=== PATIENT | male | born 1955 | race African-American/Black ===

== ENCOUNTER 2021-06-23 23:57 | Inpatient (IN) | payer MEDICARE, MEDICAID ==
[~2021-06-23] VITALS: Ht 182.9 cm; Wt 92.4 kg
[~2021-06-23 23:57] MED LIST: AMLODIPINE PO; ASPI-696 PO; ATOR-2 PO; CARV25TA12 PO; CEPH-376 PO; FURO80TA3 PO; LEVO750T6 PO; LISI-167 PO; PREG75CA PO; SPIR25TA5 PO; TRIGENTA PO
--- NOTE | 2021-06-24 01:58 | NUR ---
Note undone in EDM - 06/24/21 at 0443 by LINWOOD Pt arrives with c/o R lower leg and foot pain. Swelling and redness noted. Pt has amputation of R great toe due to prior infection and DM2. Able to change into gown independenly. [facility]
[2021-06-24 03:13] LABS: BASOPHILS % (AUTO) 1 % (0-1); EOSINOPHILS % (AUTO) 3 % (1-7); LYMPHOCYTES % (AUTO) 13 % (22-44); MEAN CORPUSCULAR HEMOGLOBIN 26.4 pg (27.5-34.5); MEAN CORPUSCULAR HGB CONC 32.5 g/dL (33.2-36.2); MEAN PLATELET VOLUME 9.1 fL (7.4-10.4); MONOCYTES % (AUTO) 8 % (2-9); NEUTROPHILS % (AUTO) 76 % (42-75); PLATELET COUNT 253 x10^3/uL (130-400); RED BLOOD COUNT 4.78 x10^6/uL (4.38-5.82)
[2021-06-24 03:16] LABS: ALANINE AMINOTRANSFERASE 24 U/L (12-78); ALBUMIN 3.3 g/dL (3.4-5.0); ANION GAP 7 mmol/L (5-15); CALCIUM 10.1 mg/dL (8.5-10.1); CHLORIDE 99 mmol/L (98-107); CREATININE 2.11 mg/dL (0.7-1.3)
[2021-06-24 03:18] LABS: ALKALINE PHOSPHATASE 150 U/L (45-117); BILIRUBIN,TOTAL 0.4 mg/dL (0.2-1.0)
[2021-06-24 03:19] LABS: TOTAL PROTEIN 10.3 g/dL (6.4-8.2)
[2021-06-24] MEDS ORDERED: ONDANSETRON 2MG/ML, 2ML IVPush PRN ×2 (04:00→04:30)
[2021-06-24] MEDS ORDERED: PIPERACILLIN/TAZO 3.375 GM in DEXTROSE 5% 50 ML IVPB ONE (04:00)
[2021-06-24] MEDS ORDERED: MORPHINE SULFATE 4 MG/ML, 1ML IVPush PRN ×2 (04:00→20:00)
[2021-06-24] MEDS ORDERED: VANCOMYCIN PER PHARMACY MC ONE (04:00)
[2021-06-24] MEDS ORDERED: HYDROmorphone 2 MG/ML, 1ML IVPush PRN (04:30)
[2021-06-24] MEDS ORDERED: VANCOMYCIN PER PHARMACY MC PRN (04:30)
[2021-06-24] MEDS ORDERED: PHARMACY MAY ADJ FOR RENAL FX MC PRN ×2 (04:30→19:30)
[2021-06-24] MEDS ORDERED: VANCOMYCIN 1,600 MG in SODIUM CHLORIDE 0.9% 250 ML IV ONE ×2 (04:30→23:30)
[2021-06-24] MEDS ORDERED: LABETALOL 5MG/ML, 20ML IVPush PRN (04:30)
--- NOTE | 2021-06-24 04:40 | NUR ---
Terrie perez in [facility] - 06/24/21 at 0443 by LINWOOD Report to [facility]
--- NOTE | 2021-06-24 04:40 | NUR ---
Report to [facility]
[2021-06-24] MEDS ORDERED: MORPHINE SULFATE 4 MG/ML, 1ML ONE (04:46)
[2021-06-24] MEDS ORDERED: ONDANSETRON 2MG/ML, 2ML ONE (04:46)
[2021-06-24] MEDS ORDERED: PHARMACOKINETIC MONITORING MC PRN (05:30)
[2021-06-24] MEDS ORDERED: VANCOMYCIN 1,800 MG in SODIUM CHLORIDE 0.9% 250 ML IV ONE (06:00)
[2021-06-24] MEDS ORDERED: CEFEPIME 2 GM in DEXTROSE 5% 100 ML IV SCH (06:00)
[2021-06-24] MEDS: INSULIN LISPRO 100 UNITS/ML, PEN SQ-INSULIN SCH ×4 (07:00→21:04)
[2021-06-24 08:20] VITALS: BP 113/71
[2021-06-24] MEDS: ACETAMINOPHEN 325 MG TABLET PO PRN ×3 (08:42→21:04)
[2021-06-24] MEDS: ENOXAPARIN 30 MG/0.3 ML SQ SCH (08:43)
[2021-06-24 14:43] VITALS: BP 114/72
[2021-06-24 20:37] VITALS: BP 126/81
[2021-06-24] MEDS: MEROPENEM 500 MG in SODIUM CHLORIDE 0.9% 100 ML IV SCH (21:04)
[2021-06-25 02:37] VITALS: BP 126/86
[2021-06-25 06:04] LABS: BASOPHILS % (AUTO) 1 % (0-1); EOSINOPHILS % (AUTO) 4 % (1-7); LYMPHOCYTES % (AUTO) 17 % (22-44); MEAN CORPUSCULAR HEMOGLOBIN 26.6 pg (27.5-34.5); MEAN CORPUSCULAR HGB CONC 32.4 g/dL (33.2-36.2); MEAN PLATELET VOLUME 9.4 fL (7.4-10.4); MONOCYTES % (AUTO) 10 % (2-9); NEUTROPHILS % (AUTO) 69 % (42-75); PLATELET COUNT 206 x10^3/uL (130-400); RED BLOOD COUNT 4.32 x10^6/uL (4.38-5.82); RED CELL DISTRIBUTION WIDTH 15.9 % (9.4-14.8)
[2021-06-25 06:10] LABS: ANION GAP 7 mmol/L (5-15); CALCIUM 9.3 mg/dL (8.5-10.1); CHLORIDE 102 mmol/L (98-107); CREATININE 1.86 mg/dL (0.7-1.3)
[2021-06-25 07:49] VITALS: BP 144/91
[2021-06-25] MEDS ORDERED: ENOXAPARIN 40 MG/0.4 ML SQ SCH (08:00)
[2021-06-25] MEDS: INSULIN LISPRO 100 UNITS/ML, PEN SQ-INSULIN SCH ×4 (08:08→21:45)
[2021-06-25] MEDS ORDERED: MAGNESIUM SULFATE PMX 2GM/50ML 50 ML IV ONE (08:30)
[2021-06-25] MEDS: ENOXAPARIN 30 MG/0.3 ML SQ SCH (09:44)
[2021-06-25] MEDS: MEROPENEM 500 MG in SODIUM CHLORIDE 0.9% 100 ML IV SCH ×2 (09:44→21:13)
[2021-06-25] MEDS: OXYcodone IR 5MG TABLET PO PRN (11:41)
[2021-06-25] MEDS: ACETAMINOPHEN 325 MG TABLET PO PRN (11:41)
[2021-06-25 13:07] VITALS: BP 113/69
[2021-06-25 19:50] VITALS: BP 143/92
[2021-06-25] MEDS: VANCOMYCIN 1,600 MG in SODIUM CHLORIDE 0.9% 250 ML IV SCH (23:18)
[2021-06-25] MEDS: MELATONIN 5 MG TABLET PO PRN (23:25)
[2021-06-26] MEDS: OXYcodone IR 5MG TABLET PO PRN ×2 (02:48→21:09)
[2021-06-26 03:25] VITALS: BP 146/91
[2021-06-26 05:54] LABS: BASOPHILS % (AUTO) 1 % (0-1); EOSINOPHILS % (AUTO) 4 % (1-7); LYMPHOCYTES % (AUTO) 20 % (22-44); MEAN CORPUSCULAR HEMOGLOBIN 26.6 pg (27.5-34.5); MEAN CORPUSCULAR HGB CONC 32.7 g/dL (33.2-36.2); MEAN PLATELET VOLUME 9.2 fL (7.4-10.4); MONOCYTES % (AUTO) 11 % (2-9); NEUTROPHILS % (AUTO) 65 % (42-75); PLATELET COUNT 202 x10^3/uL (130-400); RED BLOOD COUNT 4.12 x10^6/uL (4.38-5.82); RED CELL DISTRIBUTION WIDTH 15.8 % (9.4-14.8)
[2021-06-26 06:08] LABS: ANION GAP 8 mmol/L (5-15); CALCIUM 9.4 mg/dL (8.5-10.1); CHLORIDE 103 mmol/L (98-107); CREATININE 1.55 mg/dL (0.7-1.3)
[2021-06-26] MEDS: INSULIN LISPRO 100 UNITS/ML, PEN SQ-INSULIN SCH ×4 (07:19→21:10)
[2021-06-26 07:37] VITALS: BP 119/80
[2021-06-26] MEDS: MEROPENEM 500 MG in SODIUM CHLORIDE 0.9% 100 ML IV SCH ×2 (08:39→21:10)
[2021-06-26] MEDS: ENOXAPARIN 40 MG/0.4 ML SQ SCH (08:39)
[2021-06-26 14:15] VITALS: BP 127/80
[2021-06-26] MEDS ORDERED: OMNIPAQUE 350 MG/ML, 150 ML BOTTLE ONE (15:45)
[2021-06-26 19:42] VITALS: BP 147/93
[2021-06-26] MEDS: MELATONIN 5 MG TABLET PO PRN (21:09)
[2021-06-26] MEDS: ACETAMINOPHEN 325 MG TABLET PO PRN (21:09)
[2021-06-26] MEDS: VANCOMYCIN 1,600 MG in SODIUM CHLORIDE 0.9% 250 ML IV SCH (22:33)
[2021-06-27 01:12] VITALS: BP 127/85
[2021-06-27 05:53] LABS: ALBUMIN 2.6 g/dL (3.4-5.0); ANION GAP 6 mmol/L (5-15); CALCIUM 9.4 mg/dL (8.5-10.1); CHLORIDE 103 mmol/L (98-107)
[2021-06-27 05:57] LABS: ALANINE AMINOTRANSFERASE 16 U/L (12-78); ALKALINE PHOSPHATASE 116 U/L (45-117); BILIRUBIN,TOTAL 0.3 mg/dL (0.2-1.0); TOTAL PROTEIN 8.6 g/dL (6.4-8.2)
[2021-06-27 06:04] LABS: BASOPHILS % (AUTO) 1 % (0-1); EOSINOPHILS % (AUTO) 5 % (1-7); LYMPHOCYTES % (AUTO) 20 % (22-44); MEAN CORPUSCULAR HEMOGLOBIN 26.1 pg (27.5-34.5); MEAN CORPUSCULAR HGB CONC 32.1 g/dL (33.2-36.2); MEAN PLATELET VOLUME 8.9 fL (7.4-10.4); MONOCYTES % (AUTO) 10 % (2-9); NEUTROPHILS % (AUTO) 64 % (42-75); PLATELET COUNT 226 x10^3/uL (130-400); RED BLOOD COUNT 4.48 x10^6/uL (4.38-5.82); RED CELL DISTRIBUTION WIDTH 15.6 % (9.4-14.8)
[2021-06-27] MEDS: INSULIN LISPRO 100 UNITS/ML, PEN SQ-INSULIN SCH ×4 (06:07→20:34)
[2021-06-27] MEDS: ENOXAPARIN 40 MG/0.4 ML SQ SCH (08:00)
[2021-06-27 08:45] VITALS: BP 155/100
[2021-06-27] MEDS: MEROPENEM 500 MG in SODIUM CHLORIDE 0.9% 100 ML IV SCH (09:00)
[2021-06-27 14:05] VITALS: BP 145/96
[2021-06-27] MEDS ORDERED: MEROPENEM 1 GM in SODIUM CHLORIDE 0.9% 100 ML IVPB SCH (15:00)
[2021-06-27] MEDS ORDERED: CHLORHEXIDINE 15 ML UDC ONE (15:18)
[2021-06-27] MEDS ORDERED: MIDAZOLAM 1 MG/ML, 2ML ONE (15:22)
[2021-06-27] MEDS ORDERED: FENTANYL PF 100 MCG/2ML ONE ×2 (15:22→17:09)
[2021-06-27] MEDS ORDERED: CHLORHEXIDINE 15 ML UDC PO ONE (15:30)
[2021-06-27] MEDS ORDERED: HYDROmorphone 1 MG/ML, 1ML INJ IVPush PRN (16:00)
[2021-06-27] MEDS ORDERED: ONDANSETRON 2MG/ML, 2ML IVPush PRN (16:00)
[2021-06-27] MEDS ORDERED: PROMETHAZINE 25 MG/ML, 1ML IVPush PRN (16:00)
[2021-06-27] MEDS ORDERED: HYDROcodone/APAP 7.5-325MG/15ML UDC PO PRN (16:00)
[2021-06-27] MEDS ORDERED: MEPERIDINE/PF 25MG/0.5ML IVPush PRN (16:00)
[2021-06-27] MEDS ORDERED: OXYcodone 5 MG/5 ML ORAL.SOL UDC PO PRN (16:00)
[2021-06-27] MEDS ORDERED: DEXAMETHASONE 4 MG/ML, 1ML ONE (16:33)
[2021-06-27] MEDS ORDERED: ONDANSETRON 2MG/ML, 2ML ONE (16:33)
[2021-06-27] MEDS ORDERED: CEFAZOLIN 1,000 MG ONE (16:33)
[2021-06-27] MEDS ORDERED: PROPOFOL 10 MG/ML, 20ML ONE (16:33)
[2021-06-27] MEDS ORDERED: OXYcodone 5 MG/5 ML ORAL.SOL UDC ONE (17:10)
[2021-06-27] MEDS: FENTANYL PF 100 MCG/2ML IV PRN ×2 (17:12→17:27)
[2021-06-27 18:27] VITALS: BP 143/86
[2021-06-27] MEDS: ATORVASTATIN 80 MG TABLET PO SCH (20:31)
[2021-06-27] MEDS: PREGABALIN 75 MG CAPSULE PO SCH (20:31)
[2021-06-27] MEDS: OXYcodone IR 5MG TABLET PO PRN (20:31)
[2021-06-27] MEDS: MEROPENEM 1 GM in SODIUM CHLORIDE 0.9% 100 ML IVPB SCH (20:33)
[2021-06-27] MEDS: SPIRONOLACTONE 25 MG TABLET PO SCH (20:33)
[2021-06-27] MEDS: VANCOMYCIN 1,400 MG in SODIUM CHLORIDE 0.9% 250 ML IV SCH (22:19)
[2021-06-27 23:40] VITALS: BP 146/96
[2021-06-28] MEDS: OXYcodone IR 5MG TABLET PO PRN ×4 (00:35→20:56)
[2021-06-28 03:45] VITALS: BP 132/89
[2021-06-28] MEDS ORDERED: ALLO100T30 PO (04:44)
[2021-06-28 05:35] LABS: BASOPHILS % (AUTO) 1 % (0-1); EOSINOPHILS % (AUTO) 5 % (1-7); LYMPHOCYTES % (AUTO) 16 % (22-44); MEAN CORPUSCULAR HEMOGLOBIN 26.5 pg (27.5-34.5); MEAN CORPUSCULAR HGB CONC 32.5 g/dL (33.2-36.2); MONOCYTES % (AUTO) 13 % (2-9); NEUTROPHILS % (AUTO) 66 % (42-75); PLATELET COUNT 245 x10^3/uL (130-400); RED BLOOD COUNT 4.34 x10^6/uL (4.38-5.82); RED CELL DISTRIBUTION WIDTH 15.8 % (9.4-14.8)
[2021-06-28 05:44] LABS: ALANINE AMINOTRANSFERASE 16 U/L (12-78); ALBUMIN 2.2 g/dL (3.4-5.0); ANION GAP 3 mmol/L (5-15); CHLORIDE 104 mmol/L (98-107); CREATININE 2.03 mg/dL (0.7-1.3)
[2021-06-28 05:47] LABS: ALKALINE PHOSPHATASE 97 U/L (45-117); BILIRUBIN,TOTAL 0.3 mg/dL (0.2-1.0)
[2021-06-28] MEDS: CARVEDILOL 25 MG TABLET PO SCH (06:10)
[2021-06-28] MEDS: ASPIRIN 81 MG TABLET EC PO SCH (06:10)
[2021-06-28] MEDS: INSULIN LISPRO 100 UNITS/ML, PEN SQ-INSULIN SCH ×4 (06:14→20:56)
[2021-06-28 08:34] VITALS: BP 136/87
[2021-06-28] MEDS: LINAGLIPTIN 5 MG TAB PO SCH (09:00)
[2021-06-28] MEDS ORDERED: LISINOPRIL 10 MG TABLET PO SCH (09:00)
[2021-06-28] MEDS ORDERED: FUROSEMIDE 80 MG TABLET PO SCH (09:00)
[2021-06-28] MEDS: SPIRONOLACTONE 25 MG TABLET PO SCH (09:56)
[2021-06-28] MEDS: ENOXAPARIN 40 MG/0.4 ML SQ SCH (09:56)
[2021-06-28] MEDS: MEROPENEM 1 GM in SODIUM CHLORIDE 0.9% 100 ML IVPB SCH ×2 (09:56→20:51)
[2021-06-28] MEDS: PREGABALIN 75 MG CAPSULE PO SCH ×2 (09:57→20:51)
[2021-06-28 15:24] VITALS: BP 111/76
[2021-06-28] MEDS: ATORVASTATIN 80 MG TABLET PO SCH (20:51)
[2021-06-28 20:57] VITALS: BP 115/80
[2021-06-28] MEDS: VANCOMYCIN 1,400 MG in SODIUM CHLORIDE 0.9% 250 ML IV SCH (22:18)
[2021-06-29 02:13] VITALS: BP 149/93
[2021-06-29] MEDS: ASPIRIN 81 MG TABLET EC PO SCH (05:36)
[2021-06-29] MEDS: OXYcodone IR 5MG TABLET PO PRN ×2 (05:36→09:24)
[2021-06-29] MEDS: CARVEDILOL 25 MG TABLET PO SCH (05:37)
[2021-06-29 05:51] LABS: BASOPHILS % (AUTO) 1 % (0-1); EOSINOPHILS % (AUTO) 3 % (1-7); LYMPHOCYTES % (AUTO) 15 % (22-44); MEAN CORPUSCULAR HEMOGLOBIN 26.5 pg (27.5-34.5); MEAN CORPUSCULAR HGB CONC 32.6 g/dL (33.2-36.2); MEAN PLATELET VOLUME 8.6 fL (7.4-10.4); MONOCYTES % (AUTO) 7 % (2-9); NEUTROPHILS % (AUTO) 73 % (42-75); PLATELET COUNT 243 x10^3/uL (130-400); RED BLOOD COUNT 4.16 x10^6/uL (4.38-5.82)
[2021-06-29 06:02] LABS: CHLORIDE 102 mmol/L (98-107)
[2021-06-29 06:08] LABS: ANION GAP 5 mmol/L (5-15); CALCIUM 9.3 mg/dL (8.5-10.1); CREATININE 2.49 mg/dL (0.7-1.3)
[2021-06-29 08:04] VITALS: BP 128/76
[2021-06-29] MEDS: INSULIN LISPRO 100 UNITS/ML, PEN SQ-INSULIN SCH ×4 (08:06→22:12)
[2021-06-29] MEDS: MEROPENEM 1 GM in SODIUM CHLORIDE 0.9% 100 ML IVPB SCH (09:22)
[2021-06-29] MEDS: HEPARIN 5,000 UNITS/ML, 1ML SQ SCH ×2 (09:22→17:25)
[2021-06-29] MEDS: PREGABALIN 75 MG CAPSULE PO SCH ×2 (09:22→22:08)
[2021-06-29] MEDS: LINAGLIPTIN 5 MG TAB PO SCH (09:23)
[2021-06-29 13:44] VITALS: BP 138/84
[2021-06-29 19:12] VITALS: BP 142/93
[2021-06-29] MEDS: ATORVASTATIN 80 MG TABLET PO SCH (22:08)
[2021-06-30 02:14] VITALS: BP 133/89
[2021-06-30] MEDS: HEPARIN 5,000 UNITS/ML, 1ML SQ SCH ×3 (02:42→17:45)
[2021-06-30] MEDS: OXYcodone IR 5MG TABLET PO PRN ×3 (02:42→15:52)
[2021-06-30 05:49] LABS: BASOPHILS % (AUTO) 1 % (0-1); EOSINOPHILS % (AUTO) 7 % (1-7); LYMPHOCYTES % (AUTO) 26 % (22-44); MEAN CORPUSCULAR HGB CONC 32.1 g/dL (33.2-36.2); MEAN PLATELET VOLUME 8.9 fL (7.4-10.4); MONOCYTES % (AUTO) 9 % (2-9); NEUTROPHILS % (AUTO) 58 % (42-75); PLATELET COUNT 249 x10^3/uL (130-400); RED BLOOD COUNT 4.09 x10^6/uL (4.38-5.82); RED CELL DISTRIBUTION WIDTH 15.4 % (9.4-14.8)
[2021-06-30 05:58] LABS: ANION GAP 5 mmol/L (5-15); CALCIUM 9.5 mg/dL (8.5-10.1); CHLORIDE 106 mmol/L (98-107); CREATININE 1.92 mg/dL (0.7-1.3)
[2021-06-30 06:02] LABS: VANCOMYCIN,TROUGH 21.5 mcg/mL (5.0-10.0)
[2021-06-30] MEDS: CARVEDILOL 25 MG TABLET PO SCH (06:12)
[2021-06-30] MEDS: ASPIRIN 81 MG TABLET EC PO SCH (06:12)
[2021-06-30] MEDS: INSULIN LISPRO 100 UNITS/ML, PEN SQ-INSULIN SCH ×3 (06:15→15:46)
[2021-06-30 07:28] VITALS: BP 138/89
[2021-06-30] MEDS: PREGABALIN 75 MG CAPSULE PO SCH (08:11)
[2021-06-30] MEDS: LINAGLIPTIN 5 MG TAB PO SCH (08:11)
[2021-06-30] MEDS ORDERED: CEFAZOLIN 2,000 MG in SODIUM CHLORIDE 0.9% 50 ML IV SCH (12:00)
[2021-06-30 14:20] VITALS: BP 136/78
[2021-06-30] MEDS ORDERED: INSU100I11 SQ-INSULIN ×2 (16:45→17:59)
[2021-06-30] MEDS ORDERED: OXYC10TA6 PO ×2 (16:45→17:59)
[2021-06-30 16:59] VITALS: BP 141/79
== END 2021-06-30 18:00 | disposition home health service (06) | DRG 617 ==
LOC: ED 06-24 04:46 → EDIP 06-24 04:47 → 4NE 06-24 05:06
PROVIDERS: ADMIT Internal Medicine; ATTEND Internal Medicine
PROC: 0Y6T0Z0 Detachment at Right 3rd Toe, Complete, Open Approach (ICD-10-PCS; principal; 2021-06-27 16:00)
DX: E10.69 Type 1 diabetes mellitus with other specified complication (principal); L03.115 Cellulitis of right lower limb; M86.171 Other acute osteomyelitis, right ankle and foot; E87.1 Hypo-osmolality and hyponatremia; E44.0 Moderate protein-calorie malnutrition; I13.0 Hypertensive heart and chronic kidney disease with heart failure and stage 1 through stage 4 chronic kidney disease, or unspecified chronic kidney disease; L03.116 Cellulitis of left lower limb; N17.0 Acute kidney failure with tubular necrosis; E10.621 Type 1 diabetes mellitus with foot ulcer; D63.8 Anemia in other chronic diseases classified elsewhere; E10.22 Type 1 diabetes mellitus with diabetic chronic kidney disease; E10.42 Type 1 diabetes mellitus with diabetic polyneuropathy; E10.65 Type 1 diabetes mellitus with hyperglycemia; E78.5 Hyperlipidemia, unspecified; E83.42 Hypomagnesemia; F17.210 Nicotine dependence, cigarettes, uncomplicated; I50.9 Heart failure, unspecified; I25.5 Ischemic cardiomyopathy; I25.2 Old myocardial infarction; N18.30 Chronic kidney disease, stage 3 unspecified; Z20.822 Contact with and (suspected) exposure to COVID-19; Z79.4 Long term (current) use of insulin; Z79.899 Other long term (current) drug therapy; Z89.431 Acquired absence of right foot; Z95.810 Presence of automatic (implantable) cardiac defibrillator; Z71.6 Tobacco abuse counseling; L97.519 Non-pressure chronic ulcer of other part of right foot with unspecified severity; B95.61 Methicillin susceptible Staphylococcus aureus infection as the cause of diseases classified elsewhere; B96.5 Pseudomonas (aeruginosa) (mallei) (pseudomallei) as the cause of diseases classified elsewhere; B95.0 Streptococcus, group A, as the cause of diseases classified elsewhere
CPT/HCPCS: 36415; 76770; 80048; 80053; 80202; 82962; 83036; 83735; 84100; 85025; 87040; 87070; 87075; 87077; 87147; 87186; 87205; 87635; 88305; 93922; 96361; 96374; 99285; C8929; G0378; J0690; J1100; J1644; J1650; J2185; J2250; J2405; J2543; J2704; J3010; J3370; Q9967; J1815; J2270; J3475; J7050